=== PATIENT | male | born 1950 | race Caucasian/White ===

== ENCOUNTER 2016-08-18 13:59 | Emergency (ER) | payer MEDICARE ==
[~2016-08-18] VITALS: Ht 180.3 cm; Wt 115.0 kg
[2016-08-18 14:04] VITALS: BP 127/81
== END 2016-08-18 16:00 | disposition left against medical advice (07) ==
LOC: ER 15:24
DX: R55 Syncope and collapse (principal); F10.120 Alcohol abuse with intoxication, uncomplicated